=== PATIENT | male | born 1955 | race African-American/Black ===

== ENCOUNTER 2016-11-04 07:46 | Emergency (ER) | payer OTHER ==
[~2016-11-04] VITALS: Ht 182.9 cm; Wt 90.9 kg
[~2016-11-04 07:46] MED LIST: ATOR40TA28 PO; CLOP75 PO; DSS100 PO; METF500T4 PO
[2016-11-04 08:25] LABS: BASOPHILS # (AUTO) 0.06 K/uL (0.00-0.20); BASOPHILS % (AUTO) 1.3 % (0.0-2.0); EOSINOPHILS % (AUTO) 2.15 % (1.0-6.0); HEMATOCRIT 38.7 % (41-53); HEMOGLOBIN 13.1 g/dL (13.5-17.5); LYMPHOCYTES # (AUTO) 1.7 K/uL (1.0-4.8); LYMPHOCYTES % (AUTO) 37.5 % (22.0-44.0); MEAN CORPUSCULAR HEMOGLOBIN 27.5 pg (26.0-34.0); MEAN CORPUSCULAR HGB CONC 33.7 G/dL (31.0-37.0); MEAN CORPUSCULAR VOLUME 81 fL (80-100); MONOCYTES # (AUTO) 0.4 K/uL (0.1-1.0); MONOCYTES % (AUTO) 9.7 % (2.0-9.0); NEUTROPHILS # (AUTO) 2.2 K/uL (1.8-7.7); NEUTROPHILS % (AUTO) 49.4 % (40.0-70.0); PLATELET COUNT (AUTO) 134 K/uL (150-450); RED BLOOD CELL COUNT(AUTO) 4.75 MIL/uL (4.50-5.90); RED CELL DISTRIBUTION WIDTH 14.2 % (11.5-14.5); WHITE BLOOD COUNT (AUTO) 4.5 K/uL (4.5-11.0)
[2016-11-04 08:26] LABS: GLUCOSE,POINT OF CARE 234 MG/DL (70-110)
[2016-11-04 08:38] LABS: ANION GAP 10 mmol/L (8-16); CALCIUM, TOTAL 9.1 mg/dL (8.8-10.5); CARBON DIOXIDE 25 mmol/L (22-29); CHLORIDE 106 mmol/L (98-107); CREATININE 1.34 mg/dL (0.60-1.30); GLOMERULAR FILTR. RATE CALC > 60 mL/min (>60); POTASSIUM 4.5 mmol/L (3.5-5.1); SODIUM SERUM 141 mmol/L (136-145); UREA NITROGEN, BLOOD 20 mg/dL (7-18)
[2016-11-04 08:45] LABS: ALANINE AMINOTRANSFERASE 25 U/L (12-78); ALBUMIN 3.8 g/dL (3.4-5.0); ASPARTATE AMINOTRANSFERASE 20 U/L (15-37); BILIRUBIN,TOTAL 0.5 mg/dL (0.1-1.0)
[2016-11-04 08:53] LABS: PROTHROMBIN TIME 10.9 SEC (9.4-11.6)
[2016-11-04] MEDS ORDERED: MECLIZINE HCL 25 MG TABLET PO ONE (10:45)
[2016-11-04] MEDS ORDERED: OxyCODONE HCL/ACETAMINOPHEN 5-325 MG TABLET PO ONE (10:45)
[2016-11-04 12:15] VITALS: BP 126/67
[2016-11-04] MEDS ORDERED: KETOROLAC TROMETHAMINE 30 MG/ML VIAL IVP ONE (12:15)
== END 2016-11-04 13:29 | disposition home or self-care (01) ==
LOC: EMS 07:56
DX: R42 Dizziness and giddiness (principal); M54.2 Cervicalgia; M54.9 Dorsalgia, unspecified; G89.29 Other chronic pain; E11.9 Type 2 diabetes mellitus without complications; E78.00 Pure hypercholesterolemia, unspecified
CPT/HCPCS: 36415; 70450; 72125; 80053; 82962; 85025; 85610; 93005; 96374; 99285; J1885

== ENCOUNTER 2019-03-23 21:11 | Inpatient (IN) | payer OTHER ==
[~2019-03-23] VITALS: Ht 170.2 cm; Wt 74.6 kg
[~2019-03-23 21:11] MED LIST changes: +0.9% SODIUM CHLORIDE 10 ML VIAL IVP ONE; -CLOP75 PO; +CLOP75TA3 PO; +GLUCAGON,HUMAN RECOMBINANT 1 MG VIAL IVP ONE; +LIDOCAINE 1% 10 ML VIAL INJ ONE; +METF-960 PO; -METF500T4 PO; +ONDANSETRON HCL 4 MG/2 ML VIAL IVP ONE; +PROPOFOL 1% 20 ML VIAL IVP ONE; +SUCCINYLCHOLINE CHLORIDE 20 MG/ML 10 ML VIAL IVP ONE
[2019-03-23] MEDS ORDERED: SODIUM CHLORIDE 0.9% 1,000 ML IV ONE (22:30)
[2019-03-23] MEDS ORDERED: ONDANSETRON HCL 4 MG/2 ML VIAL IVP ONE (22:30)
[2019-03-23] MEDS ORDERED: HYDROmorphone 2 MG/ML SYRINGE IVP ONE (22:30)
[2019-03-23 22:33] LABS: GLUCOSE,POINT OF CARE 416 MG/DL (70-110)
[2019-03-23] MEDS ORDERED: INSULIN REGULAR, HUMAN 100 UNITS/ML IVP ONE (22:45)
[2019-03-23] MEDS ORDERED: LORazepam 2 MG TABLET PO ONE (22:45)
[2019-03-23 22:50] LABS: BASOPHILS % (AUTO) 0.4 % (0.0-2.0); EOSINOPHILS % (AUTO) 0.2 % (1.0-6.0); HEMATOCRIT 42.3 % (41-53); HEMOGLOBIN 13.8 g/dL (13.5-17.5); LYMPHOCYTES # (AUTO) 0.7 K/uL (1.0-4.8); LYMPHOCYTES % (AUTO) 4.3 % (22.0-44.0); MEAN CORPUSCULAR HGB CONC 32.7 G/dL (31.0-37.0); MEAN CORPUSCULAR VOLUME 83 fL (80-100); MONOCYTES # (AUTO) 1.2 K/uL (0.1-1.0); MONOCYTES % (AUTO) 7.6 % (2.0-9.0); NEUTROPHILS # (AUTO) 13.6 K/uL (1.8-7.7); PLATELET COUNT (AUTO) 131 K/uL (150-450); RED BLOOD CELL COUNT(AUTO) 5.12 MIL/uL (4.50-5.90); RED CELL DISTRIBUTION WIDTH 15.1 % (11.5-14.5)
[2019-03-23 22:52] LABS: NEUTROPHILS % (AUTO) 87.5 % (40.0-70.0)
[2019-03-23 23:12] LABS: ALANINE AMINOTRANSFERASE 121 U/L (12-78); ALBUMIN 3.7 g/dL (3.4-5.0); ALKALINE PHOSPHATASE 134 U/L (46-116); ANION GAP 12 mmol/L (8-16); ASPARTATE AMINOTRANSFERASE 256 U/L (15-37); BILIRUBIN,TOTAL 3.9 mg/dL (0.1-1.0); CARBON DIOXIDE 28 mmol/L (22-29); CHLORIDE 99 mmol/L (98-107); CREATININE 1.41 mg/dL (0.60-1.30); GLOMERULAR FILTR. RATE CALC > 60 mL/min (>60); LIPASE 46 U/L (73-393); POTASSIUM 4.6 mmol/L (3.5-5.1); SODIUM SERUM 139 mmol/L (136-145); TOTAL PROTEIN, SERUM 8.5 g/dL (6.4-8.2); UREA NITROGEN, BLOOD 13 mg/dL (7-18)
[2019-03-23 23:14] LABS: GLUCOSE,RANDOM 413 mg/dL (70-110)
[2019-03-23 23:15] LABS: LACTIC ACID 2.5 mmol/L (0.4-2.0)
[2019-03-23] MEDS ORDERED: PIPERACILLIN/TAZO 3.375 GM/D5W 50 ML IV ONE (23:30)
[2019-03-23] MEDS ORDERED: ONDANSETRON HCL 4 MG/2 ML VIAL IVP PRN (23:45)
[2019-03-23] MEDS ORDERED: HYDROmorphone 2 MG/ML SYRINGE IVP PRN (23:45)
[2019-03-23] MEDS ORDERED: ACETAMINOPHEN 325 MG TABLET PO PRN (23:45)
[2019-03-23] MEDS ORDERED: 0.9% SODIUM CHLORIDE 10 ML SYRINGE IVP PRN (23:45)
[2019-03-24 01:56] LABS: GLUCOSE,POINT OF CARE 353 MG/DL (70-110)
[2019-03-24 02:41] VITALS: BP 149/84
[2019-03-24] MEDS ORDERED: SODIUM CHLORIDE 0.9% 500 ML IV ONE (04:58)
[2019-03-24] MEDS ORDERED: PIPERACILLIN/TAZO 3.375 GM/D5W 50 ML IV ONE (06:00)
[2019-03-24] MEDS: INSULIN LISPRO 100 UNITS/ML SQ PRN ×4 (06:11→21:53)
[2019-03-24] MEDS ORDERED: DEXTROSE 50%-WATER 25 GM/50 ML SYRINGE IVP PRN (06:15)
[2019-03-24] MEDS ORDERED: ZOLPIDEM TARTRATE 5 MG TABLET PO PRN (06:30)
[2019-03-24] MEDS ORDERED: MAGNESIUM HYDROXIDE SUSPENSION 30 ML UDCUP PO PRN (06:30)
[2019-03-24] MEDS ORDERED: BISACODYL 10 MG RECTAL RECTAL SUPPOSITORY PR PRN (06:30)
[2019-03-24] MEDS ORDERED: ONDANSETRON HCL 4 MG/2 ML VIAL IVP PRN (06:30)
[2019-03-24 08:12] VITALS: BP 155/81
[2019-03-24] MEDS ORDERED: GADOBUTROL 1 MMOL/ML 10 ML VIAL IVP ONE (08:42)
[2019-03-24] MEDS: ATORVASTATIN CALCIUM 40 MG TABLET PO SCH (09:13)
[2019-03-24] MEDS: DOCUSATE SODIUM 100 MG CAPSULE PO SCH ×2 (09:13→21:17)
[2019-03-24] MEDS: HEPARIN SODIUM,PORCINE 5,000 UNITS/ML VIAL SQ SCH ×2 (09:13→18:18)
[2019-03-24] MEDS: CLOPIDOGREL BISULFATE 75 MG TABLET PO SCH (09:13)
[2019-03-24] MEDS: PANTOPRAZOLE SODIUM 40 MG DR TABLET PO SCH (09:14)
[2019-03-24 09:52] LABS: CALCIUM, TOTAL 9.4 mg/dL (8.8-10.5); CREATININE 1.48 mg/dL (0.60-1.30); POTASSIUM 4.6 mmol/L (3.5-5.1)
[2019-03-24 09:57] LABS: ALBUMIN 3.2 g/dL (3.4-5.0); BILIRUBIN,TOTAL 4.2 mg/dL (0.1-1.0); TOTAL PROTEIN, SERUM 8.3 g/dL (6.4-8.2)
[2019-03-24] MEDS ORDERED: FentaNYL CITRATE-PF 100 MCG/2 ML VIAL IVP ONE (12:00)
[2019-03-24 12:14] VITALS: BP 161/69
[2019-03-24] MEDS ORDERED: RINGERS SOLUTION,LACTATED 1,000 ML IV ONE (12:34)
[2019-03-24] MEDS: RINGERS SOLUTION,LACTATED 1,000 ML IV SCH (13:12)
[2019-03-24] MEDS: PIPERACILLIN/TAZO 3.375 GM/D5W 50 ML IV SCH ×3 (13:12→23:59)
[2019-03-24] MEDS: ACETAMINOPHEN 325 MG TABLET PO PRN (13:15)
[2019-03-24 13:34] LABS: INR 1.1 (0.9-1.1); PROTHROMBIN TIME 11.1 SEC (9.4-11.6)
[2019-03-24] MEDS ORDERED: IOTHALAMATE MEGLUMINE 600 MG/ML 50 ML VIAL IVP ONE (13:55)
[2019-03-24] MEDS ORDERED: SODIUM CHLORIDE 0.9% 1,000 ML IV ONE (14:30)
[2019-03-24] MEDS ORDERED: SODIUM CHLORIDE 0.9% 1,000 ML ONE (14:37)
[2019-03-24 16:00] VITALS: BP 153/70
[2019-03-24] MEDS ORDERED: HYDROmorphone 2 MG/ML SYRINGE IVP PRN (17:00)
[2019-03-24] MEDS ORDERED: FentaNYL CITRATE-PF 100 MCG/2 ML VIAL IVP PRN (17:00)
[2019-03-24 19:59] VITALS: BP 118/73
[2019-03-24] MEDS: HYDROCODONE/ACETAMINOPHEN 5-325 MG TABLET PO PRN (21:17)
[2019-03-24] MEDS ORDERED: SODIUM CHLORIDE 0.9% 250 ML IV ONE (23:20)
[2019-03-24 23:42] VITALS: BP 120/69
[2019-03-25] MEDS: HEPARIN SODIUM,PORCINE 5,000 UNITS/ML VIAL SQ SCH ×4 (00:05→23:25)
[2019-03-25] MEDS: MORPHINE SULFATE 2 MG/ML SYRINGE IVP PRN ×3 (04:24→11:04)
[2019-03-25] MEDS: RINGERS SOLUTION,LACTATED 1,000 ML IV SCH (04:25)
[2019-03-25 05:10] VITALS: BP 118/56
[2019-03-25 05:11] LABS: GLUCOMETER DEV NAME(LOC) SDS.; GLUCOSE,POINT OF CARE 267 MG/DL (70-110)
[2019-03-25] MEDS: ACETAMINOPHEN 325 MG TABLET PO PRN (06:01)
[2019-03-25] MEDS: PIPERACILLIN/TAZO 3.375 GM/D5W 50 ML IV SCH ×4 (06:03→23:20)
[2019-03-25] MEDS: INSULIN LISPRO 100 UNITS/ML SQ PRN ×3 (06:10→21:32)
[2019-03-25 06:31] LABS: BASOPHILS % (AUTO) 0.3 % (0.0-2.0); EOSINOPHILS % (AUTO) 0.1 % (1.0-6.0); HEMATOCRIT 38.4 % (41-53); HEMOGLOBIN 12.7 g/dL (13.5-17.5); LYMPHOCYTES # (AUTO) 1.1 K/uL (1.0-4.8); LYMPHOCYTES % (AUTO) 6.4 % (22.0-44.0); MEAN CORPUSCULAR HEMOGLOBIN 27.4 pg (26.0-34.0); MEAN CORPUSCULAR HGB CONC 33.2 G/dL (31.0-37.0); MEAN CORPUSCULAR VOLUME 83 fL (80-100); MONOCYTES # (AUTO) 1.5 K/uL (0.1-1.0); MONOCYTES % (AUTO) 8.7 % (2.0-9.0); NEUTROPHILS # (AUTO) 14.6 K/uL (1.8-7.7); NEUTROPHILS % (AUTO) 84.5 % (40.0-70.0); PLATELET COUNT (AUTO) 124 K/uL (150-450); RED BLOOD CELL COUNT(AUTO) 4.66 MIL/uL (4.50-5.90); RED CELL DISTRIBUTION WIDTH 15.3 % (11.5-14.5)
[2019-03-25 06:55] LABS: ALBUMIN 2.5 g/dL (3.4-5.0); CALCIUM, TOTAL 8.7 mg/dL (8.8-10.5); CREATININE 1.62 mg/dL (0.60-1.30); TOTAL PROTEIN, SERUM 7.2 g/dL (6.4-8.2)
[2019-03-25 07:23] VITALS: BP 93/49
[2019-03-25] MEDS: DOCUSATE SODIUM 100 MG CAPSULE PO SCH ×2 (09:00→21:00)
[2019-03-25 11:24] VITALS: BP 126/71
[2019-03-25] MEDS ORDERED: FentaNYL CITRATE-PF 100 MCG/2 ML VIAL IVP ONE (12:00)
[2019-03-25] MEDS ORDERED: ONDANSETRON HCL 4 MG/2 ML VIAL IVP ONE (12:00)
[2019-03-25] MEDS ORDERED: PROPOFOL 1% 20 ML VIAL IVP ONE (12:00)
[2019-03-25] MEDS ORDERED: ROCURONIUM BROMIDE 10 MG/ML 5 ML VIAL IVP ONE (12:00)
[2019-03-25] MEDS ORDERED: 0.9% SODIUM CHLORIDE 10 ML VIAL IVP ONE (12:00)
[2019-03-25] MEDS ORDERED: LIDOCAINE/PF 2% 5 ML VIAL INJ ONE (12:00)
[2019-03-25] MEDS ORDERED: SUCCINYLCHOLINE CHLORIDE 20 MG/ML 10 ML VIAL IVP ONE (12:00)
[2019-03-25] MEDS ORDERED: MORPHINE SULFATE 4 MG/ML SYRINGE IVP ONE (12:00)
[2019-03-25] MEDS ORDERED: RINGERS SOLUTION,LACTATED 1,000 ML IV ONE (12:00)
[2019-03-25] MEDS ORDERED: PHENYLEPHRINE HCL 10 MG/ML VIAL IVP ONE (12:00)
[2019-03-25] MEDS ORDERED: DEXAMETHASONE SOD PHOS 4 MG/ML VIAL IVP ONE (12:00)
[2019-03-25] MEDS ORDERED: MIDAZOLAM HCL 2 MG/2 ML VIAL IVP ONE (12:00)
[2019-03-25] MEDS ORDERED: BUPIVACAINE 0.25%/EPI 1:200,000/PF 10 ML VIAL ONE (12:19)
[2019-03-25] MEDS ORDERED: SODIUM CL IRRIG SOLN BAG 3,000 ML IRRIG ONE (12:20)
[2019-03-25] MEDS ORDERED: SODIUM CHLORIDE 0.9% 1,000 ML IV ONE (13:10)
[2019-03-25] MEDS ORDERED: FentaNYL CITRATE-PF 100 MCG/2 ML VIAL IVP PRN (14:15)
[2019-03-25] MEDS ORDERED: HYDROmorphone 2 MG/ML SYRINGE IVP PRN (14:15)
[2019-03-25] MEDS ORDERED: MEPERIDINE-PF 25 MG/ML VIAL IVP PRN (14:15)
[2019-03-25] MEDS ORDERED: SUGAMMADEX SODIUM 200 MG/2 ML VIAL IVP ONE (14:36)
[2019-03-25] MEDS ORDERED: MEPERIDINE-PF 25 MG/ML VIAL ONE (15:35)
[2019-03-25 16:31] VITALS: BP 131/75
[2019-03-25] MEDS: CLOPIDOGREL BISULFATE 75 MG TABLET PO SCH (17:05)
[2019-03-25] MEDS: ATORVASTATIN CALCIUM 40 MG TABLET PO SCH (17:05)
[2019-03-25] MEDS: PANTOPRAZOLE SODIUM 40 MG DR TABLET PO SCH (17:06)
[2019-03-25] MEDS: OXYGEN THERAPY IH SCH (17:06)
[2019-03-25 20:32] VITALS: BP 123/75
[2019-03-26 00:14] VITALS: BP 137/66
[2019-03-26] MEDS: PIPERACILLIN/TAZO 3.375 GM/D5W 50 ML IV SCH ×4 (05:28→23:55)
[2019-03-26] MEDS: INSULIN LISPRO 100 UNITS/ML SQ PRN ×4 (06:09→20:09)
[2019-03-26 07:14] LABS: BASOPHILS % (AUTO) 0.3 % (0.0-2.0); EOSINOPHILS % (AUTO) 0 % (1.0-6.0); HEMATOCRIT 30.9 % (41-53); HEMOGLOBIN 10.1 g/dL (13.5-17.5); LYMPHOCYTES # (AUTO) 0.7 K/uL (1.0-4.8); LYMPHOCYTES % (AUTO) 5.9 % (22.0-44.0); MEAN CORPUSCULAR HGB CONC 32.8 G/dL (31.0-37.0); MEAN CORPUSCULAR VOLUME 82 fL (80-100); MONOCYTES # (AUTO) 0.5 K/uL (0.1-1.0); MONOCYTES % (AUTO) 3.9 % (2.0-9.0); NEUTROPHILS # (AUTO) 11.2 K/uL (1.8-7.7); PLATELET COUNT (AUTO) 138 K/uL (150-450); RED BLOOD CELL COUNT(AUTO) 3.76 MIL/uL (4.50-5.90); RED CELL DISTRIBUTION WIDTH 15.7 % (11.5-14.5)
[2019-03-26 07:19] LABS: NEUTROPHILS % (AUTO) 89.9 % (40.0-70.0)
[2019-03-26 07:42] LABS: CALCIUM, TOTAL 8.3 mg/dL (8.8-10.5); CREATININE 1.58 mg/dL (0.60-1.30); POTASSIUM 3.8 mmol/L (3.5-5.1)
[2019-03-26] MEDS: OXYGEN THERAPY IH SCH ×4 (08:00→20:30)
[2019-03-26 08:12] VITALS: BP 139/72
[2019-03-26] MEDS: PANTOPRAZOLE SODIUM 40 MG DR TABLET PO SCH (08:51)
[2019-03-26] MEDS: HEPARIN SODIUM,PORCINE 5,000 UNITS/ML VIAL SQ SCH ×3 (08:51→23:55)
[2019-03-26] MEDS: DOCUSATE SODIUM 100 MG CAPSULE PO SCH ×2 (08:51→19:55)
[2019-03-26] MEDS: ATORVASTATIN CALCIUM 40 MG TABLET PO SCH (08:51)
[2019-03-26] MEDS: CLOPIDOGREL BISULFATE 75 MG TABLET PO SCH (08:54)
[2019-03-26 08:56] LABS: ALBUMIN 2.2 g/dL (3.4-5.0); BILIRUBIN,TOTAL 0.8 mg/dL (0.1-1.0); TOTAL PROTEIN, SERUM 7.1 g/dL (6.4-8.2)
[2019-03-26] MEDS: RINGERS SOLUTION,LACTATED 1,000 ML IV SCH (09:09)
[2019-03-26] MEDS: HYDROCODONE/ACETAMINOPHEN 5-325 MG TABLET PO PRN ×2 (10:10→17:33)
[2019-03-26 11:42] VITALS: BP 154/88
[2019-03-26] MEDS ORDERED: SODIUM CHLORIDE 0.9% 250 ML IV ONE (12:30)
[2019-03-26] MEDS: GlipiZIDE 5 MG TABLET PO SCH ×2 (12:33→17:33)
[2019-03-26 16:38] VITALS: BP 137/73
[2019-03-26] MEDS ORDERED: GlipiZIDE 5 MG TABLET PO SCH (17:00)
[2019-03-26 20:00] VITALS: BP 144/75
[2019-03-26 23:30] VITALS: BP 137/64
[2019-03-27 04:40] VITALS: BP 116/56
[2019-03-27] MEDS: PIPERACILLIN/TAZO 3.375 GM/D5W 50 ML IV SCH ×2 (06:04→12:19)
[2019-03-27] MEDS: GlipiZIDE 5 MG TABLET PO SCH (06:04)
[2019-03-27] MEDS: INSULIN LISPRO 100 UNITS/ML SQ PRN ×2 (06:05→12:19)
[2019-03-27 07:17] LABS: BASOPHILS % (AUTO) 0.3 % (0.0-2.0); EOSINOPHILS % (AUTO) 1.7 % (1.0-6.0); HEMATOCRIT 31.6 % (41-53); HEMOGLOBIN 10.5 g/dL (13.5-17.5); LYMPHOCYTES # (AUTO) 2.3 K/uL (1.0-4.8); LYMPHOCYTES % (AUTO) 23.7 % (22.0-44.0); MEAN CORPUSCULAR HEMOGLOBIN 27.1 pg (26.0-34.0); MEAN CORPUSCULAR HGB CONC 33.1 G/dL (31.0-37.0); MEAN CORPUSCULAR VOLUME 82 fL (80-100); MONOCYTES # (AUTO) 0.6 K/uL (0.1-1.0); MONOCYTES % (AUTO) 6.4 % (2.0-9.0); NEUTROPHILS # (AUTO) 6.6 K/uL (1.8-7.7); NEUTROPHILS % (AUTO) 67.9 % (40.0-70.0); PLATELET COUNT (AUTO) 139 K/uL (150-450); RED BLOOD CELL COUNT(AUTO) 3.86 MIL/uL (4.50-5.90); RED CELL DISTRIBUTION WIDTH 15.3 % (11.5-14.5)
[2019-03-27 07:20] VITALS: BP 126/67
[2019-03-27] MEDS: OXYGEN THERAPY IH SCH ×2 (08:00)
[2019-03-27] MEDS: DOCUSATE SODIUM 100 MG CAPSULE PO SCH (08:58)
[2019-03-27] MEDS: ATORVASTATIN CALCIUM 40 MG TABLET PO SCH (09:01)
[2019-03-27] MEDS: CLOPIDOGREL BISULFATE 75 MG TABLET PO SCH (09:01)
[2019-03-27] MEDS: HEPARIN SODIUM,PORCINE 5,000 UNITS/ML VIAL SQ SCH (09:01)
[2019-03-27] MEDS: PANTOPRAZOLE SODIUM 40 MG DR TABLET PO SCH (09:02)
[2019-03-27 11:10] VITALS: BP 135/77
[2019-03-27 20:49] LABS: GLUCOMETER DEV NAME(LOC) 4E.2; GLUCOSE,POINT OF CARE 342 MG/DL (70-110)
[2019-03-27 20:49] LABS: GLUCOMETER DEV NAME(LOC) 4E.2; GLUCOSE,POINT OF CARE 337 MG/DL (70-110)
[2019-03-27 20:50] LABS: GLUCOMETER DEV NAME(LOC) 4E.2; GLUCOSE,POINT OF CARE 283 MG/DL (70-110)
[2019-03-27 20:50] LABS: GLUCOMETER DEV NAME(LOC) 4E.2; GLUCOSE,POINT OF CARE 302 MG/DL (70-110)
[2019-03-27 20:50] LABS: GLUCOMETER DEV NAME(LOC) 4E.2; GLUCOSE,POINT OF CARE 287 MG/DL (70-110)
[2019-03-27 20:50] LABS: GLUCOMETER DEV NAME(LOC) 4E.2; GLUCOSE,POINT OF CARE 301 MG/DL (70-110)
[2019-03-27 20:51] LABS: GLUCOMETER DEV NAME(LOC) 4E.2; GLUCOSE,POINT OF CARE 255 MG/DL (70-110)
[2019-03-27 20:51] LABS: GLUCOMETER DEV NAME(LOC) 4E.2; GLUCOSE,POINT OF CARE 347 MG/DL (70-110)
[2019-03-27 20:51] LABS: GLUCOMETER DEV NAME(LOC) 4E.2; GLUCOSE,POINT OF CARE 328 MG/DL (70-110)
[2019-03-27 20:51] LABS: GLUCOMETER DEV NAME(LOC) 4E.2; GLUCOSE,POINT OF CARE 282 MG/DL (70-110)
[2019-03-27 20:51] LABS: GLUCOMETER DEV NAME(LOC) 4E.2; GLUCOSE,POINT OF CARE 330 MG/DL (70-110)
[2019-03-27 20:51] LABS: GLUCOMETER DEV NAME(LOC) 4E.2; GLUCOSE,POINT OF CARE 288 MG/DL (70-110)
[2019-03-27 20:51] LABS: GLUCOMETER DEV NAME(LOC) 4E.2; GLUCOSE,POINT OF CARE 360 MG/DL (70-110)
== END 2019-03-27 12:50 | disposition home or self-care (01) | DRG 710 ==
LOC: EMS 21:13 → 4E 23:30
PROVIDERS: ADMIT Internal Medicine; ATTEND Internal Medicine
PROC: 0FC98ZZ Extirpation of Matter from Common Bile Duct, Via Natural or Artificial Opening Endoscopic (ICD-10-PCS; 2019-03-24)
PROC: 0FT44ZZ Resection of Gallbladder, Percutaneous Endoscopic Approach (ICD-10-PCS; principal; 2019-03-25 14:00)
DX: A41.9 Sepsis, unspecified organism (principal); E11.40 Type 2 diabetes mellitus with diabetic neuropathy, unspecified; K80.42 Calculus of bile duct with acute cholecystitis without obstruction; E11.65 Type 2 diabetes mellitus with hyperglycemia; K76.0 Fatty (change of) liver, not elsewhere classified; M54.9 Dorsalgia, unspecified; E78.5 Hyperlipidemia, unspecified; E78.00 Pure hypercholesterolemia, unspecified; G89.29 Other chronic pain; K82.A1 Gangrene of gallbladder in cholecystitis; Z79.4 Long term (current) use of insulin; Z79.899 Other long term (current) drug therapy; Z86.73 Personal history of transient ischemic attack (TIA), and cerebral infarction without residual deficits
CPT/HCPCS: 74176; 74183; 76700; 83605; 87040; 87081; 87086; 88304; 93005; A9585; G0378; J0330; J0690; J1100; J1170; J1610; J1644; J2175; J2250; J2270; J2370; J2405; J2543; J2704; J3010; J3490; J7030; J7040; J7050; J7120; Q9961

== ENCOUNTER 2023-04-24 04:04 | Emergency (ER) | payer OTHER, MEDICARE ==
[~2023-04-24] VITALS: Ht 170.2 cm; Wt 81.0 kg
[~2023-04-24 04:04] MED LIST changes: -0.9% SODIUM CHLORIDE 10 ML VIAL IVP ONE; -CLOP75TA3 PO; +CLOP75TA60 PO; -GLUCAGON,HUMAN RECOMBINANT 1 MG VIAL IVP ONE; -LIDOCAINE 1% 10 ML VIAL INJ ONE; +METF-1211 PO; -METF-960 PO; -ONDANSETRON HCL 4 MG/2 ML VIAL IVP ONE; -PROPOFOL 1% 20 ML VIAL IVP ONE; -SUCCINYLCHOLINE CHLORIDE 20 MG/ML 10 ML VIAL IVP ONE
[2023-04-24] MEDS ORDERED: TRAM-559 PO (05:03)
[2023-04-24] MEDS: TraMADol HCL 50 MG TABLET PO ONE (05:21)
[2023-04-24 05:59] VITALS: BP 153/81; PULSE 83; RESP 18; TEMP 97.9
== END 2023-04-24 05:50 | disposition home or self-care (01) ==
LOC: EMS 04:05
DX: S92.402A Displaced unspecified fracture of left great toe, initial encounter for closed fracture (principal); E78.00 Pure hypercholesterolemia, unspecified; G89.29 Other chronic pain; M54.9 Dorsalgia, unspecified; E11.40 Type 2 diabetes mellitus with diabetic neuropathy, unspecified; Z98.890 Other specified postprocedural states; W22.8XXA Striking against or struck by other objects, initial encounter; Y93.89 Activity, other specified; Y92.89 Other specified places as the place of occurrence of the external cause; Y99.8 Other external cause status
CPT/HCPCS: 99283

== ENCOUNTER 2023-10-15 19:16 | Emergency (ER) | payer MEDICARE, OTHER ==
[~2023-10-15] VITALS: Ht 170.2 cm; Wt 77.3 kg
[~2023-10-15 19:16] MED LIST changes: +TRAM50TA5 PO
[2023-10-15 19:25] VITALS: BP 139/67; PULSE 77; RESP 16; TEMP 98.3
[2023-10-15 19:33] LABS: COVID AG,FIA SOURCE NASAL SWAB
[2023-10-15 19:55] LABS: INFLUENZA TYPE A NEGATIVE FOR TYPE A (NEGATIVE); INFLUENZA TYPE B NEGATIVE FOR TYPE B (NEGATIVE); SARS-COV2 (COVID) ANTIGEN,FIA Negative (Negative)
[2023-10-16] MEDS ORDERED: AZIT250T9 PO (03:18)
[2023-10-16] MEDS ORDERED: BENZ-227 PO (03:18)
== END 2023-10-16 03:25 | disposition home or self-care (01) ==
LOC: EMS 19:16
DX: J18.0 Bronchopneumonia, unspecified organism (principal); R05.9 Cough, unspecified; M79.10 Myalgia, unspecified site; E11.9 Type 2 diabetes mellitus without complications; Z20.822 Contact with and (suspected) exposure to COVID-19
CPT/HCPCS: 82962; 87804; 99283